=== PATIENT | male | born 1975 | race Caucasian/White ===

== ENCOUNTER 2021-12-09 21:11 | Inpatient (IN) | payer BC ==
[2021-12-09 23:16] VITALS: BMI 29.9
[2021-12-10] MEDS ORDERED: hydrALAZINE 20 MG/ML VIAL SLOW IVP PRN (01:58)
[2021-12-10] MEDS ORDERED: Ondansetron ODT 4 MG TAB PO PRN (01:59)
[2021-12-10] MEDS ORDERED: Acetaminophen 325 MG TAB PO PRN (01:59)
[2021-12-10] MEDS ORDERED: Electrolyte Replacement Protocol 1 EACH FS SCH (02:00)
[2021-12-10] MEDS ORDERED: Nitroglycerin 0.4 MG TAB (25 Tab Bottle) SL PRN (02:00)
[2021-12-10 05:35] LABS: Cardiac Risk 4.6 (Less than 4.5); Cholesterol 152 mg/dl (< 200 Desired); HDL Cholesterol 33 mg/dL (>60 Neg Risk); LDL Cholesterol, Calculated 99 mg/dL; Magnesium 1.9 mg/dL (1.6-2.6); Triglycerides 99 mg/dL (Less than 150)
[2021-12-10] MEDS: Aspirin Chewable 81 MG TAB PO SCH (07:50)
[2021-12-10] MEDS ORDERED: Magnesium 2 GM/50 ML(in water) 2 GM in Premix Bag 1 BAG IVPB SCH (08:00)
[2021-12-10] MEDS ORDERED: Magnevist 469MG/ML 20 ML VIAL ONE (14:59)
[2021-12-10] MEDS: Atorvastatin Calcium 40 MG TAB PO SCH (20:59)
[2021-12-11] MEDS: Aspirin Chewable 81 MG TAB PO SCH (10:44)
[2021-12-11] MEDS: levETIRAcetam 500 MG TAB PO SCH (20:40)
[2021-12-11] MEDS: Atorvastatin Calcium 40 MG TAB PO SCH (20:40)
[2021-12-12 06:08] LABS: Magnesium 1.9 mg/dL (1.6-2.6)
[2021-12-12] MEDS ORDERED: Magnesium 2 GM/50 ML(in water) 2 GM in Premix Bag 1 BAG IVPB SCH (08:00)
[2021-12-12] MEDS: Aspirin Chewable 81 MG TAB PO SCH (08:36)
[2021-12-12] MEDS: levETIRAcetam 500 MG TAB PO SCH (08:36)
[2021-12-12] MEDS ORDERED: Iopamidol-370 76% 500 ML 1 ML ONE (09:31)
[2021-12-12 11:16] VITALS: BP 128/78; TEMP 98.7
== END 2021-12-12 14:10 | disposition home or self-care (01) | DRG 312 ==
LOC: 2SW 23:04 → OBSVTOIN 12-11 16:32
PROVIDERS: ADMIT Student in an Organized Health Care Education/Training Program; ATTEND Student in an Organized Health Care Education/Training Program
DX: R55 Syncope and collapse (principal); G93.89 Other specified disorders of brain; Z20.822 Contact with and (suspected) exposure to COVID-19
CPT/HCPCS: 36415; 70553; 71260; 74177; 78452; 80061; 83735; 84443; 84484; 93005; 93010; 93017; 93306; 95712; 95819; 95957; 96374; A9500; A9579; G0378; J3475; Q9967

== ENCOUNTER 2022-04-16 09:08 | Outpatient (CLI) | payer BC ==
[2022-04-16] MEDS ORDERED: Magnevist 469MG/ML 20 ML VIAL ONE (10:05)
== END 2022-04-16 09:09 | disposition home or self-care (01) ==
LOC: CT 09:08
PROVIDERS: ATTEND Neurological Surgery
DX: G93.9 Disorder of brain, unspecified (principal)
CPT/HCPCS: 70450; 70553; A9579

== ENCOUNTER 2023-05-27 17:00 | Emergency (ER) | payer BC ==
[2023-05-27] MEDS ORDERED: Sulfameth/Trimethoprim DS 800-160mg TAB ONE (19:45)
== END 2023-05-27 19:50 | disposition home or self-care (01) ==
LOC: ERS 17:00
DX: Z48.00 Encounter for change or removal of nonsurgical wound dressing (principal)
CPT/HCPCS: 99282